=== PATIENT | male | born 1955 | race Caucasian/White ===

== ENCOUNTER 2024-12-02 06:19 | Day surgery (SDC) | payer MEDICARE ==
[2024-12-02] MEDS: Lactated Ringers 1,000 ML IV SCH (07:16)
[2024-12-02] MEDS ORDERED: Propofol 200 MG/20 ML SDV ONE (07:20)
[2024-12-02] MEDS ORDERED: fentaNYL 100 MCG/2 ML SDV ONE (07:20)
== END 2024-12-02 10:00 | disposition home or self-care (01) ==
LOC: JP.SDS 06:19
PROVIDERS: ATTEND Surgery
DX: Z12.11 Encounter for screening for malignant neoplasm of colon (principal); D12.2 Benign neoplasm of ascending colon; K57.30 Diverticulosis of large intestine without perforation or abscess without bleeding; Z88.5 Allergy status to narcotic agent
CPT/HCPCS: 00811; 45385; 88305; J2704; J3010; J7120